=== PATIENT | female | born 1990 | race African-American/Black ===

== ENCOUNTER 2020-02-07 13:11 | Emergency (ER) | payer OTHER, SELFPAY ==
[2020-02-07 13:20] VITALS: BP 98/69; PULSE 71; RESP 14; TEMP 36.8; O2SAT 100
--- NOTE | 2020-02-07 13:22 | ED.URI ---
HPI - URI/Sore Throat General Chief Complaint: Upper Respiratory Infection Stated Complaint: Sore throat Time Seen by Provider: 02/07/20 13:35 Source: patient and RN notes reviewed Mode of arrival: ambulatory Limitations: no limitations History of Present Illness HPI Narrative: 29-year-old female presents with concern for sore throat. Reports body aches, chills, sweats. Denies fever. Denies cough, shortness of breath. 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 MD elicited complaint: sore throat Related Data Allergies Allergy/AdvReac Type Severity Reaction Status Date / Time promethazine Allergy Intermediate Loss of Verified 02/07/20 13:29 Consciousness latex Allergy Mild Hives Verified 02/07/20 13:29 Sulfa (Sulfonamide Allergy Unknown Hives Verified 02/07/20 13:29 Antibiotics) Review of Systems Review of Systems: Narrative: CONSTITUTIONAL: Reports malaise, chills, sweats. Denies fever. EYES: Denies visual changes, redness, or discharge. ENT: Denies rhinorrhea, congestion, sinus pain, otalgia. Reports sore throat. CARDIOVASCULAR: Denies chest pain, palpitations, or edema. RESPIRATORY: Denies cough or dyspnea. GASTROINTESTINAL: Denies abdominal pain, nausea, vomiting, diarrhea SKIN: Denies rash or itching. MUSCULOSKELETAL: Reports myalgia. NEUROLOGIC: Denies headache. All systems reviewed & are unremarkable except as noted in HPI and below PMFSH Past Medical History Medical History (Updated 02/07/20 @ 13:45 by Tawanna Mc NP) Anxiety Asthma Bronchitis Depression Hypoglycemia Pneumonia Sickle cell trait Urinary tract infection Surgical History Surgical History (Updated 07/14/19 @ 09:22 by JACKIE Huizar) History of orthopedic surgery Left knee repair/torn meniscus Comments At time of signature, agree with nursing past medical, surgical, social and family history. There is no relevant family history pertinent to the presenting complaint Exam Narrative: Exam Narrative: GENERAL: Well-appearing, well-nourished, and in no acute distress. HEAD: Normocephalic EYES: PERRLA, conjunctivae clear ENT: Nares clear, turbinates pink, no discharge. Mucous membranes moist. TM pearly day with sharp light reflex bilaterally; no tragal tenderness. Oropharynx not erythematous without lesions. Tonsils not enlarged and without exudate, no drooling, no hoarseness, no trismus, uvula midline. NECK: Supple. No lymphadenopathy CHEST: Clear to auscultation, breath sounds equal. No wheezing, rhonchi, rales, or stridor. No respiratory distress, speaks in full sentences. HEART: Regular rate and rhythm. No murmur heard. SKIN: Warm, dry, no rash. NEURO: Alert and oriented x3. PSYCH: Normal mood and affect Course Course Emergency Course: Patient is aware of diagnosis, understands and agrees to treatment plan. Anticipatory guidance given. Patient agrees to follow-up as directed and is aware of reasons to seek care at the emergency department. Portions of this record may have been created with voice recognition software Vital Signs Vital signs: Vital Signs Temperature 98.3 F 02/07/20 13:20 Pulse Rate 71 02/07/20 13:20 Respiratory Rate 14 02/07/20 13:20 Blood Pressure 98/69 L 02/07/20 13:20 Pulse Oximetry 100 02/07/20 13:20 Temperature 98.3 F 02/07/20 13:20 Pulse Rate 71 02/07/20 13:20 Respiratory Rate 14 02/07/20 13:20 Blood Pressure 98/69 L 02/07/20 13:20 Pulse Oximetry 100 02/07/20 13:20 Reviewed. MDM - URI/Sore Throat MDM Narrative Medical decision making narrative: Differential diagnosis considered: Strep pharyngitis, allergic rhinitis, upper respiratory tract infection, sinusitis, rhinosinusitis, nasopharyngitis. viral pharyngitis, otitis media, otitis externa, pneumonia, bronchitis, viral cough syndrome, viral syndrome, and influenza. Exam findings show no acute concerns or changes; patient is non-toxic appearing and is in no distress. Patient is appropriat
== END 2020-02-07 13:53 | disposition home or self-care (01) ==
PROVIDERS: Emergency Provider Nurse Practitioner
DX: J02.9 Acute pharyngitis, unspecified (principal); Z87.440 Personal history of urinary (tract) infections; J45.909 Unspecified asthma, uncomplicated; D57.3 Sickle-cell trait
CPT/HCPCS: 87081; 87880; 99213; G0463

== ENCOUNTER 2020-12-29 09:42 | Emergency (ER) | payer OTHER, SELFPAY ==
[2020-12-29 09:47] VITALS: BP 107/71; PULSE 80; RESP 18; TEMP 37; O2SAT 100
--- NOTE | 2020-12-29 09:50 | ED.URI ---
HPI - URI/Sore Throat General Chief Complaint: Upper Respiratory Infection Stated Complaint: Ear pressure and congestion Time Seen by Provider: 12/29/20 09:54 Source: patient and RN notes reviewed Mode of arrival: ambulatory Limitations: no limitations History of Present Illness HPI Narrative: 30-year-old female presents with concern for nasal congestion, rhinorrhea, bilateral ear pain, neck pain, sore throat, body aches. Reports symptoms started . Reports she used baltazar tea, turmeric, honey and nasal congestion and rhinorrhea improved however did not resolve. She reports her ears continue to feel pressure and pain, feels like she is underwater. She denies cough, shortness of breath, nausea, vomiting, diarrhea. She reports a feeling of something in her throat, however denies difficulty swallowing, breathing. She denies drooling. Reports she had a negative rapid Covid test on Monday that she was required to take for work. MD elicited complaint: nasal congestion Related Data Home Medications Medication Instructions Recorded Confirmed levonorgestrel [Mirena] 1 device INTRAUTERINE ONCE 12/29/20 12/29/20 Allergies Allergy/AdvReac Type Severity Reaction Status Date / Time promethazine Allergy Intermediate Loss of Verified 02/07/20 13:29 Consciousness latex Allergy Mild Hives Verified 02/07/20 13:29 Sulfa (Sulfonamide Allergy Unknown Hives Verified 02/07/20 13:29 Antibiotics) Review of Systems Review of Systems: Narrative: CONSTITUTIONAL: Denies malaise, chills, sweats, or fever. EYES: Denies visual changes, redness, or discharge. ENT: Reports rhinorrhea, congestion, otalgia and sore throat. CARDIOVASCULAR: Denies chest pain, palpitations, or edema. RESPIRATORY: Denies cough or dyspnea. GASTROINTESTINAL: Denies abdominal pain, nausea, vomiting, diarrhea SKIN: Denies rash or itching. MUSCULOSKELETAL: Reports myalgia. NEUROLOGIC: Reports headache. All systems reviewed & are unremarkable except as noted in HPI and below PMFSH Past Medical History Medical History (Updated 12/29/20 @ 10:24 by Tawanna Mc NP) Anxiety Asthma Bronchitis Depression Hypoglycemia Pneumonia Sickle cell trait Urinary tract infection Surgical History Surgical History (Updated 07/14/19 @ 09:22 by JACKIE Huizar) History of orthopedic surgery Left knee repair/torn meniscus Social History Social History Gender identity (if verbalized by the patient): Female Comments At time of signature, agree with nursing past medical, surgical, social and family history. There is no relevant family history pertinent to the presenting complaint Exam Narrative: Exam Narrative: GENERAL: Well-appearing, well-nourished, and in no acute distress. HEAD: Normocephalic EYES: PERRLA, conjunctivae clear ENT: Nares clear, turbinates edematous and erythematous, clear discharge. Mucous membranes moist. TM pearly day with dull light reflex bilaterally; no tragal tenderness. Oropharynx mildly erythematous without lesions. Tonsils not enlarged and without exudate, no drooling, no hoarseness, no trismus, uvula midline. NECK: Supple. No lymphadenopathy CHEST: Clear to auscultation, breath sounds equal. No wheezing, rhonchi, rales, or stridor. No respiratory distress, speaks in full sentences. HEART: Regular rate and rhythm. No murmur heard. SKIN: Warm, dry, no rash. NEURO: Alert and oriented x3. PSYCH: Normal mood and affect Course Course Emergency Course: Patient is aware of diagnosis, understands and agrees to treatment plan. Anticipatory guidance given. Patient agrees to follow-up as directed and is aware of reasons to seek care at the emergency department. Portions of this record may have been created with voice recognition software Vital Signs Vital signs: Reviewed. MDM - URI/Sore Throat MDM Narrative Medical decision making narrative: Differential diagnosis considered: C
== END 2020-12-29 10:35 | disposition home or self-care (01) ==
PROVIDERS: Emergency Provider Nurse Practitioner
DX: B34.9 Viral infection, unspecified (principal); H69.93 Unspecified Eustachian tube disorder, bilateral; Z20.822 Contact with and (suspected) exposure to COVID-19; F41.9 Anxiety disorder, unspecified; J45.909 Unspecified asthma, uncomplicated; F32.9 Major depressive disorder, single episode, unspecified; D57.3 Sickle-cell trait
CPT/HCPCS: 87081; 87426; 87880; 99213; C9803; G0463